=== PATIENT | female | born 1975 | race Two or more races ===

== ENCOUNTER 2016-11-26 07:55 | Day surgery (SDC) | payer BC ==
[2016-11-23 08:17] LABS: HEMATOCRIT 42.5 % (36.0-48.0); HEMOGLOBIN 14.5 g/dL (12.0-16.0)
[2016-11-23 08:38] LABS: A/G RATIO 1.3 (0.7-1.9); ALKALINE PHOSPHATASE 72 U/L (45-117); CALCIUM, SERUM 9.3 MG/DL (8.5-10.4); CHLORIDE, SERUM 106 MMOL/L (96-112); CO2 (CARBON DIOXIDE) 29 MMOL/L (24-34); CREATININE 1.09 MG/DL (0.55-1.02); GFR AFRICAN AMERICAN 74 ML/MIN (>=60); GFR NON AFRICAN AMERICAN 63 ML/MIN (>=60); GLOBULIN 3.2 G/DL (2.5-4.1); GLUCOSE, SERUM 90 MG/DL (60-99); POTASSIUM, SERUM 4.9 MMOL/L (3.5-5.3); SGOT(AST) 44 U/L (5-40); SGPT(ALT) 66 U/L (5-65); SODIUM, SERUM 141 MMOL/L (135-148); TOTAL PROTEIN 7.2 G/DL (6.0-8.5)
[2016-11-23 08:39] LABS: BUN (BLOOD UREA NITROGEN) 14 MG/DL (6-23)
--- NOTE | ~2016-11-26 | OP ---
Record Of Operation [facility] [address] [place]. [address] NAME: MATTHEW NEWMAN : 77 STATUS : [facility]#: [id number] AGE: 41 ADM/REG DATE : 11/26/16 MR#: [id number] REPORT SERV DATE: 11/26/16 DICTATED BY: PEEWEE HARMAN DATE: 11/26/16 REPORT STATUS : Draft TRANSCRIBED BY: MODL DATE: 11/26/16 DATE OF PROCEDURE: 11/26/2016 PREOPERATIVE DIAGNOSIS: Chronic cholecystitis and cholelithiasis. POSTOPERATIVE DIAGNOSIS: Chronic cholecystitis and cholelithiasis. PROCEDURE: Laparoscopic cholecystectomy (two-site). SURGEON: Peewee Harman M.D. DESCRIPTION OF OPERATIVE PROCEDURE: The patient was brought to the operating suite, placed in supine position, underwent satisfactory general endotracheal anesthesia without incident. The skin of the abdomen was scrubbed, prepped, and draped in usual sterile fashion. 0.5% Marcaine with epinephrine utilized as supplemental local anesthesia. Initially, an infraumbilical incision was performed dissecting through the skin and subcutaneous tissue to the umbilical fascia, this was in turn grasped with a Thong clamp and elevated. A disposable Veress insufflation needle was inserted through the umbilical fascia into the peritoneal cavity. The intraperitoneal tip location was ascertained using the saline hanging drop method. CO2 was insufflated for pressures of 15 mmHg throughout the case. After adequate insufflation pressure achieved, Veress needle was removed, disposable bladed/shielded 11 mm trocar inserted through the umbilical fascia into the peritoneal cavity, following which a rigid forward-viewing 10 mm laparoscope was inserted. Visualization of the intraabdominal parietes revealed no evidence of injury from initial insufflation or puncture. A cursory examination of pelvis was normal. Attention was then turned to the upper abdomen where additional 5 mm trocar was placed to the right of falciform ligament and an additional 5 mm grasping instrument inserted through the umbilical fascia next to the umbilical trocar. The gallbladder was visualized, it had subacute inflammatory changes with thickening of the gallbladder wall. There were some fatty and periduodenal adhesions to the gallbladder. The fundus and body of the gallbladder were grasped and elevated and dissection of the triangle of Calot was successful in identifying and skeletonizing the cystic duct, cystic duct and common duct junction, as well as the cystic artery. A critical view was obtained. Both of these structures were controlled with multiple applications of the Weck 5 mm polymer clip system and divided. Then, using spatula cautery dissection, the peritoneal attachments to the gallbladder and liver were divided. The gallbladder was removed from the subhepatic space. Hemostasis was assured. Next, the camera was switched to the 5 mm epigastric port. The gallbladder was grasped by its neck and withdrawn through the umbilicus and delivered. It was opened and found to Record Of Operation [address] [address] NAME: MATTHEW NEWMAN : 77 STATUS : [facility] PAT#: [id number] AGE: 41 ADM/REG DATE : 11/26/16 MR#: [id number] REPORT SERV DATE: 11/26/16 DICTATED BY: PEEWEE HARMAN DATE: 11/26/16 REPORT STATUS : Draft TRANSCRIBED BY: RAMO DATE: 11/26/16 contain no stones. CO2 was allowed to egress from the peritoneal cavity. No muscular bleeding was noted upon removal of the trocars. The umbilicus was closed with [id number] suture of 0 Vicryl, subcutaneous tissue closure with interrupted 4-0 Vicryl, running subcuticular stitch 4-0 Vicryl for the skin. Dermabond skin adhesive placed. The patient tolerated the procedure well and was returned to PACU in stable condition. At the termination of the procedure, sponge, needle, lap, and instrument counts were correct x3. ESTIMATED BLOOD LOSS: Less than 10 mL. WR/MODL Peewee Harman M.D. / [id number] CC: Aggie Moulton M.D.
[~2016-11-26 07:55] MED LIST: APPLE CIDER VINEGAR PO; DULERA 100 MCG/13 GM INH; FIORICET 50-301 EACH PO; ZANTAC150 MG PO; [UNRECOGNIZED DRUG - OTHER] PO
== END 2016-11-26 16:18 | disposition home or self-care (01) ==
LOC: SDC 07:55
PROVIDERS: Specialist
PROC: 0FT44ZZ Resection of Gallbladder, Percutaneous Endoscopic Approach (ICD-10-PCS; principal; 2016-11-26 09:30)
DX: K80.10 Calculus of gallbladder with chronic cholecystitis without obstruction (principal); J45.909 Unspecified asthma, uncomplicated; F32.9 Major depressive disorder, single episode, unspecified; G43.909 Migraine, unspecified, not intractable, without status migrainosus; K21.9 Gastro-esophageal reflux disease without esophagitis; F41.9 Anxiety disorder, unspecified; N39.0 Urinary tract infection, site not specified; Z88.0 Allergy status to penicillin; Z87.891 Personal history of nicotine dependence; Z79.899 Other long term (current) drug therapy; Z98.890 Other specified postprocedural states
CPT/HCPCS: 76000; 80053; 84703; 85014; 85018; 88304; J0690; J1170; J1885; J2175; J2250; J2405; J2550; J2710; J3010